=== PATIENT | male | born 1970 | race Caucasian/White ===

== ENCOUNTER → 2018-02-27 16:31 | Outpatient (CLI) | payer OTHER, SELFPAY ==
[2018-02-27 18:51] LABS: Anion Gap 6 (5-15); BUN 19 mg/dL (7-18); BUN/Creat Ratio 18.3 RATIO (10-20); CPK Total, Creatine Kinase 246 U/L (39-308); Calcium,Total 8.9 mg/dL (8.5-10.1); Chloride 106 mmol/L (98-107); Creatinine, Serum 1.04 mg/dL (0.70-1.30); EST Glomerular Filtration Rate 80 mL/min (>60); Est Glom Filt Rate - Afr Amer 97 mL/min (>60); Ferritin 299 ng/mL (26-388); Glucose 90 mg/dL (74-106); Magnesium 2.4 mg/dL (1.6-2.6); Potassium 4.2 mmol/L (3.5-5.1); Sodium Level 141 mmol/L (136-145)
== END ==
PROVIDERS: Family Medicine; Family Provider Family Medicine; PCP Family Medicine; Visit Provider Family Medicine
DX: R25.2 Cramp and spasm (principal)
CPT/HCPCS: 36415; 80048; 82550; 82728; 83735

== ENCOUNTER → 2018-07-01 15:24 | Outpatient (CLI) | payer OTHER, SELFPAY ==
[2016-02-22 18:53] VITALS: BMI 28.7
--- NOTE | 2018-07-01 15:29 | RAD_ITS ---
STUDY: X-RAY - RIGHT KNEE REASON FOR EXAM: Male, 48 years old. Pain. TECHNIQUE: 4 view(s) of the knee. COMPARISON: None. FINDINGS: Normal visualized distal femur. Normal visualized proximal tibia and fibula. Normal proximal tibiofibular articulation. Normal medial femorotibial compartment. Normal lateral femorotibial compartment. Normal patellofemoral articulation. The soft tissue structures are unremarkable. RAD/Knee 4 or More Views IMPRESSION: Normal x-ray examination of the knee. Electronically Signed: Chencho Mckeon MD at 12:46 EST , Service support ,
== END ==
PROVIDERS: Family Provider Family Medicine; PCP Family Medicine; Referring Provider Family Medicine; Visit Provider Family Medicine
DX: M25.561 Pain in right knee (principal)
CPT/HCPCS: 73564

== ENCOUNTER → 2019-01-16 | Outpatient (CLI) | payer OTHER, SELFPAY ==
[2016-02-22 18:53] VITALS: BMI 28.7
--- NOTE | 2019-01-16 14:31 | EKG12_ITS ---
Test Reason : PREOP Blood Pressure : / mmHG Vent. Rate : 063 BPM Atrial Rate : 063 BPM P-R Int : 168 ms QRS Dur : 098 ms QT Int : 440 ms P-R-T Axes : 044 -08 021 degrees QTc Int : 450 ms Normal sinus rhythm Nonspecific T wave abnormality Abnormal ECG Confirmed by DUGLAS ANGELES ([id number]), make up editor POONAM STEWART ([id number]) on 01/19/2019 2:51:41 PM Referred By: Ava James Confirmed By:DUGLAS ANGELES
[2019-01-16 15:30] LABS: Hematocrit 44.5 % (40-54); Hemoglobin 15.7 g/dL (13.0-16.5); Mean Corp Hgb Conc 35.3 g/dL (32-36); Mean Corpuscular Hgb 31.4 pg (27.0-32.0); Mean Platelet Vol. 9.7 fl (6.2-12.0); Platelet Count 253 K/mm3 (150-450); RBC Distribution Width CV 12.4 % (11.6-14.6); White Blood Count 14.8 K/mm3 (4.4-11.0)
[2019-01-16 15:55] LABS: Anion Gap 7 (5-15); BUN 19 mg/dL (7-18); Calcium,Total 9.5 mg/dL (8.5-10.1); Chloride 105 mmol/L (98-107); EST Glomerular Filtration Rate 84 mL/min (>60); Est Glom Filt Rate - Afr Amer 101 mL/min (>60); Glucose 107 mg/dL (74-106); Sodium Level 141 mmol/L (136-145)
== END | disposition home or self-care (01) ==
LOC: LAB 14:18
PROVIDERS: Family Provider Family Medicine; PCP Family Medicine; Referring Provider Physician Assistant; Visit Provider Physician Assistant
DX: Z01.818 Encounter for other preprocedural examination (principal)
CPT/HCPCS: 36415; 80048; 85027; 93005

== ENCOUNTER → 2020-06-13 14:19 | Outpatient (CLI) | payer OTHER, SELFPAY ==
[2020-06-13 18:09] LABS: PSA,Total - Annual Screen 1.12 ng/mL (0.00-4.00)
== END ==
PROVIDERS: PCP Family Medicine; Referring Provider Family Medicine; Visit Provider Family Medicine
DX: Z00.00 Encounter for general adult medical examination without abnormal findings (principal)
CPT/HCPCS: 36415; 84153; G0103

== ENCOUNTER 2022-06-28 06:16 | Day surgery (SDC) | payer OTHER, SELFPAY ==
[2022-06-28 06:41] VITALS: BP 129/75; PULSE 52; RESP 16; TEMP 36.2; O2SAT 99; BMI 29.8
[2022-06-28] MEDS: Lactated Ringers 1,000 ML 15 ML IV (06:44)
--- NOTE | 2022-06-28 07:22 | HP.PCM_ITS ---
[facility] - General General Date of Admission: 06/28/22 Date of Service: 06/28/22 Chief Complaint: Screening colonoscopy HPI Cuong MILLER, is a 52 M who presents today for screening colonoscopy. He has no significant past medical. He does not take any medicine on a daily basis. He did have acute appendicitis requiring surgery back in 2016. He has not had any abdominal surgeries. He denies any chest pain or shortness of breath. He denies any headache or dizziness. Overall is in very good health. FOR[facility] Medical History (Updated 06/25/22 @ 12:14 by Poonam Padilla) Alcohol use Back pain Non-smoker Wears contact lenses Wears glasses Home Medications NK 06/25/22 [History Last Taken Unknown] Allergy/AdvReac Type Severity Reaction Status Date / Time No Known Allergies Allergy Verified 06/28/22 06:41 Family History Father Diverticulitis History of colectomy Surgical History (Updated 06/25/22 @ 12:14 by Poonam Padilla) History of appendectomy History of nasal septoplasty Hx of adenoidectomy Hx of shoulder surgery Social History Smoking Status: Never smoker ROS Review of Systems ROS Unobtainable: other Constitutional Constitutional: Denies fatigue, fever(s), poor appetite, weight gain or weight loss ENT HEENT: Denies mouth lesions Cardiovascular Cardiovascular: Denies abdominal bloating, abdominal edema or abdominal pain Respiratory/Chest Respiratory/Chest: Denies change in mental status, change in phlegm color, chest congestion or chest tightness Gastrointestinal Gastrointestinal: Denies belching, bloating, change in bowel habits, change in stool character, chewing difficulty, coffee ground emesis, constipation, cramping, diarrhea, dyspepsia, dysphagia, early satiety, excessive flatus, fecal incontinence, heartburn, hematemesis, hematochezia, hemorrhoids, loose stools, melena, nausea, odynophagia, rectal bleeding, tenesmus, vomiting or weight changes Genitourinary Genitourinary: Denies abdominal discomfort, burning urination or itching Musculoskeletal Musculoskeletal: Reports as per HPI; Denies muscle weakness or myalgias Integumentary Integumentary: Denies jaundice Neurologic Neurologic: Denies lack of coordination or weakness Psychiatric Psychiatric: Denies confusion, depression, memory loss, mood swings, paranoia or suicidal ideation Endocrine Endocrinology: Denies systems reviewed and no addt'l complaints, except as documented Hematologic/Lymphatic Hematologic/Lymphatic: Denies anemia, easy bleeding, easy bruising or lymphadenopathy Allergic/Immunologic Allergic/Immunologic: Denies systems reviewed and no addt'l complaints, except as documented Vital Signs Vital Signs Vital Signs: 06/28/22 06:41 06/28/22 06:41 Temperature 97.1 F L Temperature Source Temporal Pulse Rate 52 L Respiratory Rate 16 Respiratory Pattern Normal Blood Pressure 129/75 H Blood Pressure Mean 93 Blood Pressure Source Monitor Blood Pressure Position Semi-Fowlers Blood Pressure Location Right Arm Pulse Ox 99 Oxygen Delivery Method Room Air Weight Weight: 208 lb 1.862 oz Body Mass Index (BMI) 29.8 Physical Exam Const alert General Appearance: cooperative Orientation / Consciousness: oriented to person HEENT hearing grossly normal bilaterally Head and Scalp: normal to inspection Face and Sinus: face symmetric Nose: external nose normal Mouth: oral and palatal mucosa normal Eyes conjunctivae normal General Eye: normal appearance of both eyes Neck full ROM General: normal visual inspection Lymph Lymphatic: no lymphadenopathy noted Chest inspection of chest normal and palpation of chest normal Chest: symmetrical chest wall rise Resp normal respiratory effort Effort and Inspection: able to speak in complete sentences Cardio regular rate GI non-distended Percussion: normal to percussion Rectal Exam: deferred Neuro Speech: speech normal Gait (Neuro): normal gait Assessment & Plan Assessment/Plan (1) Encounter for screening for malignant neoplasm of colon: PLAN: He was explained alternatives, risk, benefits including not withstanding bleeding, infection, sepsis, perforation, need for emergent surgery . He will have an ASA of 1.
--- NOTE | 2022-06-28 07:49 | OP.COLON_ITS ---
Patient Name: Mckinley Amador Procedure Date: 06/28/2022 7:18 AM Date of : 1970 Age: 52 Procedure: Colonoscopy Indications: Screening for colorectal malignant neoplasm Providers: Danial Lu DO Referring MD: Danial Lu DO Medicines: Monitored Anesthesia Care Patient Profile: This is a 52 year old male. Refer to note in patient chart for documentation of history and physical. Last Colonoscopy: none. The patient's first colonoscopy is today. Complications: No immediate complications. Procedure: Pre-Anesthesia Assessment: - Prior to the procedure, a History and Physical was performed, and patient medications and allergies were reviewed. The risks and benefits of the procedure and the sedation options and risks were discussed with the patient. All questions were answered and informed consent was obtained. Patient identification and proposed procedure were verified by the physician in the pre-procedure area. Mental Status Examination: alert and oriented. Airway Examination: normal oropharyngeal airway and neck mobility. Respiratory Examination: clear to auscultation. CV Examination: normal. Prophylactic Antibiotics: The patient does not require prophylactic antibiotics. Prior Anticoagulants: The patient has taken no previous anticoagulant or antiplatelet agents. ASA Grade Assessment: II - A patient with mild systemic disease. After reviewing the risks and benefits, the patient was deemed in satisfactory condition to undergo the procedure. The anesthesia plan was to use monitored anesthesia care (MAC). Immediately prior to administration of medications, the patient was re-assessed for adequacy to receive sedatives. The heart rate, respiratory rate, oxygen saturations, blood pressure, adequacy of pulmonary ventilation, and response to care were monitored throughout the procedure. The physical status of the patient was re-assessed after the procedure. After I obtained informed consent, the scope was passed under direct vision. Throughout the procedure, the patient's blood pressure, pulse, and oxygen saturations were monitored continuously. The colonoscope was introduced through the anus and advanced to the cecum, identified by appendiceal orifice and ileocecal valve. The colonoscopy was performed without difficulty. The patient tolerated the procedure well. The quality of the bowel preparation was good. Scope In: 7:30:22 AM Scope Withdrawal Time 0 hours 10 minutes 2 seconds Scope Out: 7:43:46 AM Total Procedure Duration Time 0 hours 13 minutes 24 seconds Findings: The perianal and digital rectal examinations were normal. The entire examined colon appeared normal on direct and retroflexion views. Impression: - The entire examined colon is normal on direct and retroflexion views. - No specimens collected. Recommendation: - Discharge patient to home. - Resume previous diet. - Continue present medications. - Repeat colonoscopy in 10 years for screening purposes. Procedure Code(s): --- Professional --- G0121, Colorectal cancer screening; colonoscopy on individual not meeting criteria for high risk CPT copyright 2017 [employer]. All rights reserved. The codes documented in this report are preliminary and upon district court judge review may be revised to meet current compliance requirements. Danial Lu DO 06/28/2022 7:49:10 AM This report has been signed electronically. Number of Addenda: 0 Note Initiated On: 06/28/2022 7:18 AM
[2022-06-28 07:50] VITALS: BP 117/74; BP 129/75; PULSE 57; RESP 16; TEMP 36.9; O2SAT 100
--- NOTE | 2022-06-28 07:50 | OP.CCLET_ITS ---
06/28/2022 Dunia Caldwell [address] [place] [address] Re : Colonoscopy procedure for [facility] Dear Dr. Caldwell This procedure was performed on June. My impressions and recommendations are as follows: Impressions : - The entire examined colon is normal on direct and retroflexion views. - No specimens collected. Recommendations : - Discharge patient to home. - Resume previous diet. - Continue present medications. - Repeat colonoscopy in 10 years for screening purposes. My findings are described in the full procedure note, which is enclosed. If I can be of further assistance, please feel free to contact me at . Sincerely, Danial Lu, 06/28/2022 7:49:10 AM This report has been signed electronically.
[2022-06-28 07:55] VITALS: BP 129/75; BP 135/89; PULSE 55; RESP 16; O2SAT 100
[2022-06-28 08:00] VITALS: BP 129/75; BP 160/78; PULSE 53; RESP 16; O2SAT 100
[2022-06-28 08:05] VITALS: BP 129/75; BP 138/76; PULSE 54; RESP 16; O2SAT 100
[2022-06-28 08:33] VITALS: BP 129/75
== END 2022-06-28 08:37 | disposition home or self-care (01) ==
LOC: EN 06:17 → AC 06:19
PROVIDERS: PCP Family Medicine; Referring Provider Family Medicine; Visit Provider Internal Medicine Gastroenterology
PROC: 0DJD8ZZ Inspection of Lower Intestinal Tract, Via Natural or Artificial Opening Endoscopic (ICD-10-PCS; CPT 45378; principal; 2022-06-28 07:25)
DX: Z12.11 Encounter for screening for malignant neoplasm of colon (principal)
CPT/HCPCS: 45378; J7120; J2405

== ENCOUNTER → 2022-12-07 | Outpatient (CLI) | payer OTHER, SELFPAY ==
[2022-12-07 17:49] LABS: Anion Gap 6 (5-15); BUN 19 mg/dL (7-18); BUN/Creat Ratio 17.1 RATIO (10-20); Chloride 107 mmol/L (98-107); Cholesterol 207 mg/dL (200); Creatinine, Serum 1.11 mg/dL (0.70-1.30); EST Glomerular Filtration Rate 73 mL/min (>60); Est Glom Filt Rate - Afr Amer 89 mL/min (>60); Glucose 107 mg/dL (74-106); High Density Lipoprotein 40 mg/dL; PSA,Total - Annual Screen 1.58 ng/mL (0.00-4.00); Potassium 4.1 mmol/L (3.5-5.1); Sodium Level 139 mmol/L (136-145); Triglycerides 187 mg/dL; Very Low Density Lipoprotein 37 mg/dL (5-40)
== END | disposition home or self-care (01) ==
LOC: MFPLAB 16:07
PROVIDERS: PCP Family Medicine; Visit Provider Family Medicine
DX: I10 Essential (primary) hypertension (principal); Z12.5 Encounter for screening for malignant neoplasm of prostate
CPT/HCPCS: 36415; 80048; 80061; 84153; G0103